=== PATIENT | male | born 1965 | race Caucasian/White ===

== ENCOUNTER 2016-11-29 14:22 | Emergency (ER) | payer SELFPAY ==
--- NOTE | 2016-11-29 17:11 | DIAGNOSTIC IMAGING REPORT ---
PROCEDURE: XR FINGER - RIGHT INDICATION: TRAUMA/INJURY TECHNIQUE: A P hand and two views of the right fourth digit. COMPARISON: None. FINDINGS: Small soft tissue loss of the tips of the right fourth finger with minimally displaced comminuted fracture of the distal tuft. There is several punctate foreign bodies present. Mild degenerative changes of the DIP and moderate degenerate changes of the first carpometacarpal joints. IMPRESSION: 1. Open comminuted fracture of the right fourth finger distal phalanx with small soft tissue loss 2. Foreign bodies
--- NOTE | 2016-11-29 17:23 | ED CLINICAL REPORT ---
Clinical Report - Physicians/Mid Levels [facility] [address] [place] [address] 11/29/2016 14:24 Patient: ANNE RICHARDS Time Seen: 14:42. Arrived- By private vehicle. Historian- patient. HISTORY OF PRESENT ILLNESS Chief Complaint: Injury to the right ring finger. The injury happened yesterday. The patient sustained a laceration (by radiator fan). (patient [place] that [place] and [place] working on his vehicle. He reached his hand and his fingertip was cut by a radiator fan.). Patient is experiencing moderate pain. No other injury. ( Patient states he came today because the finger was bleeding last night and he couldn't get it to completely stop.). REVIEW OF SYSTEMS No swelling, tingling, numbness, weakness or foreign body. No skin laceration. All systems otherwise negative, except as recorded above. PAST HISTORY Problems: no known problems. Additional Surgeries: Back Surgery. Medications: None. Allergies: No Known Drug Allergy. SOCIAL HISTORY Never smoker. Alcohol use. History of drug use: marijuana. ADDITIONAL NOTES The nursing notes have been reviewed. PHYSICAL EXAM Vital Signs: 11/29/2016 14:43 BP: 142/83. HR: 69. RR: 20. O2 saturation: 100%. Temp: 97.5 F. Have been reviewed. Appearance: Alert. Oriented X3. No acute distress. Head: Head atraumatic. Eyes: Pupils equal, round and reactive to light. Eyes normal inspection. ENT: Nose normal. Neck: Normal inspection. CVS: Pulses normal. Respiratory: No respiratory distress. Back: ROM normal. Skin: Skin warm and dry. Extremities: Tip of right ring finger: nail partially avulsed; partial loss of the nail bed; (Tissue is macerated, overlying the anterior aspect of the distal phalanx.). No erythema, tenderness, swelling or foreign body. No subungual hematoma or exposed bone on the right ring finger or tip amputation of the right ring finger. No wrist injury. Hand and wrist exam otherwise negative. Extremities otherwise negative. Neuro, Vascular and Tendons: Vascular status intact. Sensation intact. Motor intact. Tendon function intact. Neuro: No motor deficit. No sensory deficit. (Grossly oriented.). LABS, X-RAYS, AND EKG Rt UE Digits X-ray: Normal alignment. Digit fracture of the right upper extremity. Comminuted, open fracture of the distal phalanx, ring finger. No intraarticular or angulated fracture of the right ring finger. Soft tissues normal. Joint spaces normal. No air in the soft tissue or foreign body. Views: AP, lateral and oblique. Technique: good. The X-rays were independently viewed by me and interpreted contemporaneously by me. Prior films were not available for comparison. Pulse Oximetry: 11/29/2016 14:43 O2 saturation: 100%. (FIO2 - room air). Interpretation: normal. PROGRESS AND PROCEDURES Digital Nerve Block - Finger: Digital nerve block performed on the right ring finger. Web space approach utilized. Landmarks identified. Skin prepped. Total volume of 5 mL 2% Lidocaine infiltrated via a skin puncture using a 30-gauge needle. Patient cooperative during procedure. No complications encountered. Excellent anesthesia achieved. Splint Application: Aluminum-foam volar splint applied to right ring finger. Splint applied by marlee with direct supervision by me and the ED physician. Reassessed extremity following splint application. Neurovascular intact. Course of Care: I did remove a couple of small fragments of nail from the periphery of the patient's nail bed, but the proximal part of the nail, which was still intact, at left in place. X-ray did show a tuft fracture and as such I did start the patient on Keflex. There is no bony exposure, but due to the macerated appearance of the patient's tissue, I did feel the patient should follow-up with a hand specialist within the next few days to determine whether grafting or any other procedure would be necessary. I did cleanse the patient's wounds after administering a digital block and the finger was dressed and splinted. Patient counseled in person regarding the patient's stable condition, test results, diagnosis and need for follow-up. Concerns were addressed. Old medical records reviewed. Disposition: Discharged. Condition: stable and improved. CLINICAL IMPRESSION Open nondisplaced distal phalanx fracture of the right ring finger. No angulated fracture of the phalanx. 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 INSTRUCTIONS Apply ice for 15-20 minutes three times a day as needed and until better. Don't apply ice directly to skin and don't use while asleep. Elevate affected areas above chest level as needed and until better. Wear aluminum splint until released. Limit use of your right hand (Keep the wounded area covered with an impervious material at all times when working with messy products (paints, solvents, dust/dirt, etc)).). Warnings: SEDATIVE MEDICATION: You were given sedative medication during your visit. Do not drive or operate dangerous machinery for 6 hours. GENERAL WARNINGS: Return or contact your physician immediately if your condition worsens or changes unexpectedly, if not improving as expected, or if other problems arise. Prescription Medications: Hydrocodone/APAP 5mg / 325mg: take 1-2 orally every 4 hours as needed for pain. Dispense twenty-five (25). No refill. Cephalexin 500 mg: take 1 capsule orally every 6 hours for 7 days. No refill. Follow-up: Follow up with a hand surgeon Dr. Tenzin Rodriguez ([facility]/[place]): [phone]; Dr. Cameron Nascimento ([place]): [phone]. Call for the next available appointment. Reason for referral: Nailbed and fingertip avulsion with open tuft fracture. (Please make an appointment with whichever specialist can see you soonest). Understanding of the discharge instructions verbalized by patient. (Electronically signed by Neela Case MD 12/04/2016 7:50)
--- NOTE | 2016-11-29 17:24 | ED ORDER SUMMARY ---
..... Patient: ANNE RICHARDS OrderSheet [facility] VisitID: [id number] [place] [address] 51y, M Registration Date/Time: 11/29/2016 ORDER SHEET Weight: 90.7 kg (stated) Allergies: No Known Drug Allergy GENERAL ORDERS: Finger Right (ring finger) Urgent (14:49 11/29/2016 LNations ER Tech1 per protocol) (Ack 14:51 PWeiler ER Tech1) (15:52 LNations ER Tech1) Splint (Finger) (Right) (Ring) (Aluminum Foam) (17:13 11/29/2016 Rebecca MYRICK) (17:28 LWhalen R.N.) Dress Wounds (17:13 11/29/2016 Rebecca MYRICK) (17:28 LWhalen R.N.) MEDICATION ORDERS: Hydrocodone-APAP PO 5/325 mg (NOW, HIGH ALERT MEDICATION) (16:09 11/29/2016 Rebecca MYRICK) (16:10 LWhalen R.N.) Keflex PO 500 mg (NOW) (16:52 11/29/2016 Rebecca MYRICK) (Ack 16:53 SRoberts R.N.) (16:57 SRoberts R.N.) IV FLUIDS: ORDER SHEET NOTES: [Electronically signed by Naresh Pagan R.N. (10:11/30/2016)] [Electronically signed by Neela Case MD (07:50 12/04/2016)] [Electronically locked/signed by Naresh Pagan R.N. (10:11/30/2016)]
--- NOTE | 2016-11-29 17:24 | ED ORDER SUMMARY ---
..... Patient: ANNE RICHARDS OrderSheet [facility] VisitID: [id number] [place] [address] 51y, M Registration Date/Time: 11/29/2016 ORDER SHEET Weight: 90.7 kg (stated) Allergies: No Known Drug Allergy GENERAL ORDERS: Finger Right (ring finger) Urgent (14:49 11/29/2016 LNations ER Tech1 per protocol) (Ack 14:51 PWeiler ER Tech1) (15:52 LNations ER Tech1) Splint (Finger) (Right) (Ring) (Aluminum Foam) (17:13 11/29/2016 Rebecca MYRICK) (17:28 LWhalen R.N.) Dress Wounds (17:13 11/29/2016 Rebecca MYRICK) (17:28 LWhalen R.N.) MEDICATION ORDERS: Hydrocodone-APAP PO 5/325 mg (NOW, HIGH ALERT MEDICATION) (16:09 11/29/2016 Rebecca MYRICK) (16:10 LWhalen R.N.) Keflex PO 500 mg (NOW) (16:52 11/29/2016 Rebecca MYRICK) (Ack 16:53 SRoberts R.N.) (16:57 SRoberts R.N.) IV FLUIDS: ORDER SHEET NOTES: [Electronically signed by Naresh Pagan R.N. (10:11/30/2016)] [Electronically signed by Neela Case MD (07:50 12/04/2016)] [Electronically locked/signed by Naresh Pagan R.N. (10:11/30/2016)]
--- NOTE | 2016-11-29 17:24 | ED NURSING NOTES ---
Clinical Report - Nurses [place] [address] [place] [address] 11/29/2016 14:24 Patient: ANNE RICHARDS TRIAGE Triage time 14:43 Nov 29 2016. Acuity: LEVEL 3. Chief Complaint: INJURY TO RIGHT HAND. JASMYNE COMA SCORE: Jasmyne Coma Scale: 15- eyes open spontaneously (4); best verbal response- oriented x 4 (5); best motor response- obeys commands (6). --14:47 Naresh Pagan R.N. 14:43 11/29/16. BP: 142/83. HR: 69. RR: 20. O2 saturation: 100%. Temp: 97.5 F. Pain level now 8/10. --14:47 Naresh Pagan R.N. Weight: 90.7 kg stated. Height/Length: 69 inches Per Patient. BMI: 29.5. --14:46 Naresh Pagan R.N. Medications None. --14:44 Naresh Pagan R.N. Allergies No Known Drug Allergy. --14:44 Naresh Pagna R.N. History Arrived by private vehicle. Historian: patient. Accompanied by family. This occurred just prior to arrival. Occurred at home. ( [place] finger got caught in the radiator fan and it cut his top of his ring finger.). No neck pain or weakness. Treatment PHARMACY TECHNOLOGY INSTRUCTOR: (antiseptic crme). PAST MEDICAL HX: Tetanus status: up-to-date. SOCIAL HX: Regular alcohol use; consumes beer weekly. History of drug use: marijuana. SELF HARM ASSESSMENT: A self harm assessment was performed. The patient answered "no" to the question "Have you recently felt down, depressed, or hopeless?" and "Do you have thoughts of harming or killing yourself?". FALL RISK ASSESSMENT: Fall risk assessment completed. No fall risk identified. NUTRITIONAL RISK ASSESSMENT: The nutritional risk assessment revealed no deficiencies. FUNCTIONAL ASSESSMENT: Functional assessment: no impairments noted. LEARNING NEEDS ASSESSMENT: The learning needs assessment revealed no barriers. ABUSE ASSESSMENT: Abuse assessment: (yes) The patient was asked "Do you feel safe in your home?". SKIN INTEGRITY ASSESSMENT: Skin integrity risk assessment completed. No skin integrity risk identified. --14:47 Naresh Pagan R.N. ADDITIONAL SURGERIES: Back Surgery. --14:45 Naresh Pagan R.N. Interventions ID band on patient. --14:47 Naresh Pagan R.N. PHYSICAL ASSESSMENT Ambulatory to room. GENERAL / NEURO / PSYCH: Oriented X 4. Alert. Appears in no acute distress. He has had numbness (ring finger). EXTREMITIES: Capillary refill is less than 2 seconds in the extremities. Extremity pulses are within normal limits. Extremities exhibit normal ROM. Right hand: laceration. SKIN: Skin is warm and dry. Laceration. --14:47 Naresh Pagan R.N. NURSING PROGRESS NOTES The initial plan of care for this patient includes an assessment with efforts to address patient positioning, appropriate ambient lighting and comfortable environmental temperature; impairment of the musculoskeletal and integumentary system. Reassurance given. Call light placed in reach. Side rails up x 1. Bed placed in lowest position. Brakes of bed on. --14:48 Naresh Pagna R.N. ( soaking finger wound in warm water and bedatine.). --15:36 Jessica Mercer ER Tech1 16:10 11/29/2016 Hydrocodone-APAP (Hydrocodone-Acetaminophen) PO 5/325 mg Tablets 1 tab given. Allergies verified, confirmed 5 rights and sedative warning given to the patient and patient's hiv/aids care nurse. --16:10 Naresh Pagan R.N. 16:57 11/29/2016 Keflex (Cephalexin) PO 500 mg given. Allergies verified and confirmed 5 rights. --16:57 Aylin Botello R.N. Applied dressing consisting of Tegaderm, following the application of antibiotic ointment. Secured with trever bandage (alum foam splint held in place with trever wrap.). --17:30 Jessica Mercer ER Tech1. DISPOSITION / DISCHARGE Departure time: 17:44 Nov 29 2016. Condition at departure: improved. No learning barriers present. Discharge instructions provided and reviewed with the patient. Reviewed warnings. Reviewed medication(s). Treatments reviewed. Reviewed referrals. Work note given. Patient verbalized understanding. Written instructions provided in Mongolian. The patient was discharged home and accompanied by family. He left the Emergency Department ambulatory and via private vehicle. Family member driving. --17:44 Naresh Pagan R.N. 17:32 11/29/16. BP: 136/72. HR: 78. RR: 20. O2 saturation: 98%. Temp: 98.2 F. Pain level now 03/11. --17:44 Naresh Pagan R.N. Locked/Released at 11/30/2016 10:09 by Naresh Pagan R.N.
--- NOTE | 2016-11-29 17:24 | ED NURSING NOTES ---
Clinical Report - Nurses [place] [address] [place] [address] 11/29/2016 14:24 Patient: ANNE RICHARDS TRIAGE Triage time 14:43 Nov 29 2016. Acuity: LEVEL 3. Chief Complaint: INJURY TO RIGHT HAND. JASMYNE COMA SCORE: Jasmyne Coma Scale: 15- eyes open spontaneously (4); best verbal response- oriented x 4 (5); best motor response- obeys commands (6). --14:47 Naresh Pagan R.N. 14:43 11/29/16. BP: 142/83. HR: 69. RR: 20. O2 saturation: 100%. Temp: 97.5 F. Pain level now 8/10. --14:47 Naresh Pagan R.N. Weight: 90.7 kg stated. Height/Length: 69 inches Per Patient. BMI: 29.5. --14:46 Naresh Pagan R.N. Medications None. --14:44 Naresh Pagan R.N. Allergies No Known Drug Allergy. --14:44 Naresh Pagan R.N. History Arrived by private vehicle. Historian: patient. Accompanied by family. This occurred just prior to arrival. Occurred at home. ( Went [place] finger got caught in the radiator fan and it cut his top of his ring finger.). No neck pain or weakness. Treatment SOAP MAKER: (antiseptic crme). PAST MEDICAL HX: Tetanus status: up-to-date. SOCIAL HX: Regular alcohol use; consumes beer weekly. History of drug use: marijuana. SELF HARM ASSESSMENT: A self harm assessment was performed. The patient answered "no" to the question "Have you recently felt down, depressed, or hopeless?" and "Do you have thoughts of harming or killing yourself?". FALL RISK ASSESSMENT: Fall risk assessment completed. No fall risk identified. NUTRITIONAL RISK ASSESSMENT: The nutritional risk assessment revealed no deficiencies. FUNCTIONAL ASSESSMENT: Functional assessment: no impairments noted. LEARNING NEEDS ASSESSMENT: The learning needs assessment revealed no barriers. ABUSE ASSESSMENT: Abuse assessment: (yes) The patient was asked "Do you feel safe in your home?". SKIN INTEGRITY ASSESSMENT: Skin integrity risk assessment completed. No skin integrity risk identified. --14:47 Naresh Pagan R.N. ADDITIONAL SURGERIES: Back Surgery. --14:45 Naresh Pagan R.N. Interventions ID band on patient. --14:47 Naresh Pagan R.N. PHYSICAL ASSESSMENT Ambulatory to room. GENERAL / NEURO / PSYCH: Oriented X 4. Alert. Appears in no acute distress. He has had numbness (ring finger). EXTREMITIES: Capillary refill is less than 2 seconds in the extremities. Extremity pulses are within normal limits. Extremities exhibit normal ROM. Right hand: laceration. SKIN: Skin is warm and dry. Laceration. --14:47 Naresh Pagan R.N. NURSING PROGRESS NOTES The initial plan of care for this patient includes an assessment with efforts to address patient positioning, appropriate ambient lighting and comfortable environmental temperature; impairment of the musculoskeletal and integumentary system. Reassurance given. Call light placed in reach. Side rails up x 1. Bed placed in lowest position. Brakes of bed on. --14:48 Naresh Pagan R.N. ( soaking finger wound in warm water and bedatine.). --15:36 Jessica Mercer ER Tech1 16:10 11/29/2016 Hydrocodone-APAP (Hydrocodone-Acetaminophen) PO 5/325 mg Tablets 1 tab given. Allergies verified, confirmed 5 rights and sedative warning given to the patient and patient's finding fastener. --16:10 Naresh Pagan R.N. 16:57 11/29/2016 Keflex (Cephalexin) PO 500 mg given. Allergies verified and confirmed 5 rights. --16:57 Aylin Botello R.N. Applied dressing consisting of Tegaderm, following the application of antibiotic ointment. Secured with trever bandage (alum foam splint held in place with trever wrap.). --17:30 Jessica Mercer ER Tech1. DISPOSITION / DISCHARGE Departure time: 17:44 Nov 29 2016. Condition at departure: improved. No learning barriers present. Discharge instructions provided and reviewed with the patient. Reviewed warnings. Reviewed medication(s). Treatments reviewed. Reviewed referrals. Work note given. Patient verbalized understanding. Written instructions provided in Syriac. The patient was discharged home and accompanied by family. He left the Emergency Department ambulatory and via private vehicle. Family member driving. --17:44 Naresh Pagan R.N. 17:32 11/29/16. BP: 136/72. HR: 78. RR: 20. O2 saturation: 98%. Temp: 98.2 F. Pain level now 03/11. --17:44 Naresh Pagan R.N. Locked/Released at 11/30/2016 10:09 by Naresh Pagan R.N.
--- NOTE | 2016-12-04 07:50 | ED MAR SUMMARY ---
..... Medication Administration Record [facility] [address] [place] [address] Patient: ANNE RICHARDS Visit ID: [id number] 51y, M Weight: 90.7 kg Height/Length: 69 in BMI: 29.5 ALLERGIES: No Known Drug Allergy Given 16:10 11/29/2016 Naresh Pagan R.N. Medication Administered: HYDROCODONE-APAP [PO] (HYDROCODONE-ACETAMINOPHEN), Dose: 1 tab 5/325 mg Tablets PO. Medication Ordered: Hydrocodone-APAP PO 5/325 mg (NOW, HIGH ALERT MEDICATION). Given 16:57 11/29/2016 Aylin Botello R.N. Medication Administered: KEFLEX [PO] (CEPHALEXIN), Dose: 500 mg PO. Medication Ordered: Keflex PO 500 mg (NOW).
--- NOTE | 2016-12-04 07:50 | ED DISCHARGE INSTRUCTIONS ---
Patient: ANNE RICHARDS General Instructions [facility] VisitID: [id number] [place] [address] 51y, M Registration Date/Time: 11/29/2016 Open nondisplaced distal phalanx fracture of the right ring finger. No angulated fracture of the phalanx. 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 INSTRUCTIONS Apply ice for 15-20 minutes three times a day as needed and until better. Don't apply ice directly to skin and don't use while asleep. Elevate affected areas above chest level as needed and until better. Wear aluminum splint until released. Limit use of your right hand (Keep the wounded area covered with an impervious material at all times when working with messy products (paints, solvents, dust/dirt, etc)).). Warnings: SEDATIVE MEDICATION: You were given sedative medication during your visit. Do not drive or operate dangerous machinery for 6 hours. GENERAL WARNINGS: Return or contact your physician immediately if your condition worsens or changes unexpectedly, if not improving as expected, or if other problems arise. Prescription Medications: Hydrocodone/APAP 5mg / 325mg: take 1-2 orally every 4 hours as needed for pain. Dispense twenty-five (25). No refill. Cephalexin 500 mg: take 1 capsule orally every 6 hours for 7 days. No refill. Follow-up: Follow up with a hand surgeon Dr. Tenzin Rodriguez ([facility]): [phone]; Dr. Cameron Nascimento ([place]): [phone]. Call for the next available appointment. Reason for referral: Nailbed and fingertip avulsion with open tuft fracture. (Please make an appointment with whichever specialist can see you soonest). Understanding of the discharge instructions verbalized by patient. ADDITIONAL INFORMATION Finger Tip Amputation [Open Treatment] You have cut off the tip of your finger. When this happens there is skin missing and the wound cannot be fully covered by sewing the edges together. For your type of injury, the best result can be obtained by allowing the wound to heal on its own by growing new skin from the sides. Depending on the size of the wound, it will take from 26 weeks for the wound to fill in with new skin. Once healed, you should have normal feeling in the new skin. Antibiotics may be used to prevent infection if the wound is dirty or if the bone or tendons were involved. Home care The following guidelines will help you care for your wound at home: Keep the injured hand elevated during the first two days to reduce swelling and pain. Keep the bandage clean and dry. If the dressing stays on longer than two days, it will stick to the wound. Unless, you have a doctor appointment in two days, change the bandage as described below. If you were advised to change your own dressing, follow these directions regardingbandage removal and replacement: If the dressing sticks to the wound, you can loosen it by soaking the dressing under warm running water. Once the dressing is removed, clean the wound with soap and water. Apply an antibiotic ointment. Bulky gauze dressing should be used for the first two days for additional protection from injury. Cover with a nonstick gauze pad or wrap with bandage gauze. After that, if your wound is small and not too painful, a large stretch bandage is okay to use. You may shower as usual, but keep your dressing dry by using a small plastic trash bag over the hand, rubber-banded at the wrist. Do not soak your hand in water (no baths or swimming) until approved by your doctor. If antibiotics were prescribed, take them all until they are gone. You may use [id number] pain medication unless another pain medicine was prescribed. If you have chronic liver or kidney disease or ever had a stomach ulcer or GI bleeding, talk with your doctor before using these medicines. If a numbing medicine was used on your finger it will wear off in 16 hours. Begin taking your pain medicinebeforethis happens, since there may be throbbing or pain during the first few days. Follow-up care An infection may sometimes occur even though proper treatment was given. If no appointment was given for a wound check, and if your doctor did not advise against it, you may check the wound yourself at home in two days by carefully removing the dressing as described above. If stitches were used, they should be removed within 714 days, as advised by your doctor. [Note: If X-rays were taken, a radiologist will review them and you will be notified of any new findings that may affect your care.] When to seek medical care Get prompt medical attention if any of the following occur: Increasing pain in the wound Redness or swelling around the wound Pus or fluid coming from the wound or foul odor from a cast or splint If sutures or camilo come apart or fall out before your next appointment Fever of 100.4F (38C) or higher, or as directed by your health care provider Bleeding not controlled by direct pressure Nail Injury (Partial Finger/Toe Nail Plate Avulsion) Some injuries to a finger or toe can cause loosening of the nail. Sometimes there is a cutin the nail bed or a fracture of the bone under the nail. If the nail is more severely injured, it may fall off completely in 12 weeks. This is not serious and in most cases, the nail will grow back from under the cuticle. This takes a few weeks to start and is complete in about 46 months for a fingernail and 12 months for a toenail. If the nail bed was damaged, the nail may grow back with a rough or irregular shape. Sometimes the nail may not regrow at all. Home care The following guidelines will help you care for your wound at home: Keep the injured part elevated to reduce pain and swelling. This is very important during the first 48 hours. Make an ice pack (ice cubes in a plastic bag, wrapped in a towel) and apply for 20 minutes every two hours during the first day, then 34 times a day to reduce swelling and pain until the swelling goes down. You may use acetaminophen or ibuprofen to control pain, unless another pain medicine was prescribed.If you have chronic liver or kidney disease or ever had a stomach ulcer or GI bleeding, talk with your doctor before using these medicines. Do not use ibuprofen in children under six months of age. If a bandage was applied, change it once a day, unless told otherwise. Be careful not to pull on the nail when removing the dressing. If necessary, soak the dressing off while holding your finger or toe under warm running water. Apply a layer of antibiotic ointment onto the nail before putting on the new dressing or adhesive bandage. This will help keep it from sticking. If an X-ray was taken and a fracture was found, it will take about four weeks for this to heal. The injured part should be protected with a splint or tape while it is healing. If you were prescribed antibiotics to prevent infection, take them as directed until they are all gone. Follow-up care Follow up with your doctor or this facility as directed. Note:If X-rays were taken, they will be reviewed by a radiologist. You will be notified of any new findings that may affect your care. When to seek medical care Get prompt medical attention if any of the following occur: Pain or swelling increase Redness around the nail Pus (creamy white or yellow fluid) draining from the nail Fever of 100.4F (38C) or higher, or as directed by your health care provider Fracture:Finger [Open] You have a fracture of your finger (broken finger) with a nearby cut, puncture or deep scrape. This causes local pain, swelling and bruising. Because of the open injury, there is a risk of infection in the skin and bone. Antibiotics will be used to lower the risk of infection. This injury takes about four weeks to heal. Finger injuries are often treated with a splint, cast or by taping the injured finger to the next one ("leonel taping"). This protects the injured finger and holds the bone in position while it heals. More serious fractures may require surgery. If the FINGERNAIL has been severely injured, it will probably fall off in 1-2 weeks. A new fingernail will usually start to grow back within a month. Home Care: Keep your hand elevated to reduce pain and swelling. When sitting or lying down elevate your arm above the level of your heart. You can do this by placing your arm on a pillow that rests on your chest or on a pillow at your side. This is most important during the first 48 hours after injury. Apply an ice pack (ice cubes in a plastic bag, wrapped in a towel) over the injured area for 20 minutes every 1-2 hours the first day for pain relief. Continue this 3-4 times a day until the pain and swelling goes away. Keep the cast/splint completely dry at all times. Bathe with your cast/splint out of the water, protected with a large plastic bag, rubber-banded at the top end. If a fiberglass cast/splint gets wet, you can dry it with a hair-dryer. If leonel tape was applied and it becomes wet or dirty, change it. You may replace it with paper, plastic or cloth tape. Cloth tape and paper tapes must be kept dry. Keep the leonel tape in place for at least four weeks. You may use acetaminophen (Tylenol) or ibuprofen (Motrin, Advil) to control pain, unless another pain medicine was prescribed. [ NOTE : If you have chronic liver or kidney disease or ever had a stomach ulcer or GI bleeding, talk with your doctor before using these medicines.] Take all antibiotics until finished. Follow Up with your doctor within one week, or as advised by our staff, to be sure the bone is healing properly, . [NOTE: A radiologist will review any X-rays that were taken. We will notify you of any new findings that may affect your care.] Return Promptly or contact your doctor if any of the following occur: The plaster cast or splint becomes wet or soft The fiberglass cast or splint remains wet for more than 24 hours Pain or swelling increase Finger becomes cold, blue, numb or tingly Redness, warmth, swelling, drainage from the wound or foul odor from a cast or splint Fever of 100.4F (38C) or higher, or as directed by your healthcare provider You have been given the following additional information: Finger Tip Amputation, Open Treatment Nail Avulsion, Partial Fracture, Finger (Open) Limit use of your right hand (Keep the wounded area covered with an impervious material at all times when working with messy products (paints, solvents, dust/dirt, etc)).). (Electronically signed by Neela Case MD 12/04/2016 7:50)
--- NOTE | 2016-12-04 07:50 | ED MED RECONCILIATION SUMMARY ---
Patient: ANNE RICHARDS Medication Reconciliation Report [facility] VisitID: [id number] [address] [place] [address] 51y, M Registration Date/Time: 11/29/2016 Weight: 90.7 kg Height/Length: 69 in. BMI: 29.5 ALLERGIES: No Known Drug Allergy The patient's Home Medications are listed below: NONE. The source(s) of the original Home Medication information: Not obtained. The following Medications were given to the patient in the Emergency Department: Hydrocodone-APAP [PO] PO 1 tab, administered: 11/29/2016 4:10:00 PM Keflex [PO] PO 500 mg, administered: 11/29/2016 4:57:00 PM The following Medications were prescribed to the patient: Hydrocodone/APAP 5mg / 325mg: take 1-2 orally every 4 hours as needed for pain. Dispense twenty-five (25). No refill. -- Neela Case MD Cephalexin 500 mg: take 1 capsule orally every 6 hours for 7 days. No refill. -- Neela Case MD
--- NOTE | 2016-12-04 07:50 | ED MAR SUMMARY ---
..... Medication Administration Record [facility] [address] [place] [address] Patient: ANNE RICHARDS Visit ID: [id number] 51y, M Weight: 90.7 kg Height/Length: 69 in BMI: 29.5 ALLERGIES: No Known Drug Allergy Given 16:10 11/29/2016 Naresh Pagan R.N. Medication Administered: HYDROCODONE-APAP [PO] (HYDROCODONE-ACETAMINOPHEN), Dose: 1 tab 5/325 mg Tablets PO. Medication Ordered: Hydrocodone-APAP PO 5/325 mg (NOW, HIGH ALERT MEDICATION). Given 16:57 11/29/2016 Aylin Botello R.N. Medication Administered: KEFLEX [PO] (CEPHALEXIN), Dose: 500 mg PO. Medication Ordered: Keflex PO 500 mg (NOW).
--- NOTE | 2016-12-04 07:50 | ED MED RECONCILIATION SUMMARY ---
Patient: ANNE RICHARDS Medication Reconciliation Report [facility] VisitID: [id number] [address] [place] [address] 51y, M Registration Date/Time: 11/29/2016 Weight: 90.7 kg Height/Length: 69 in. BMI: 29.5 ALLERGIES: No Known Drug Allergy The patient's Home Medications are listed below: NONE. The source(s) of the original Home Medication information: Not obtained. The following Medications were given to the patient in the Emergency Department: Hydrocodone-APAP [PO] PO 1 tab, administered: 11/29/2016 4:10:00 PM Keflex [PO] PO 500 mg, administered: 11/29/2016 4:57:00 PM The following Medications were prescribed to the patient: Hydrocodone/APAP 5mg / 325mg: take 1-2 orally every 4 hours as needed for pain. Dispense twenty-five (25). No refill. -- Neela Case MD Cephalexin 500 mg: take 1 capsule orally every 6 hours for 7 days. No refill. -- Neela Case MD
== END 2016-11-29 17:40 | disposition home or self-care (01) ==
LOC: ED SRH 14:22
DX: S62.664B Nondisplaced fracture of distal phalanx of right ring finger, initial encounter for open fracture (principal); S68.622A Partial traumatic transphalangeal amputation of right middle finger, initial encounter; W23.0XXA Caught, crushed, jammed, or pinched between moving objects, initial encounter; Y93.89 Activity, other specified; Y92.019 Unspecified place in single-family (private) house as the place of occurrence of the external cause; Y99.9 Unspecified external cause status